=== PATIENT | male | born 1950 | race Caucasian/White ===

== ENCOUNTER 2020-07-27 08:47 | Observation (INO) | payer MEDICARE, BC ==
[~2020-07-27] VITALS: Ht 188 cm; Wt 108.9 kg
[2020-07-27] MEDS ORDERED: LIPITOR10 MG GT (10:09)
[2020-07-27] MEDS ORDERED: GLUCOPHAGE500 MG PO (10:09)
[2020-07-27] MEDS ORDERED: ASPIRIN81 MG PO (10:10)
[2020-07-27] MEDS ORDERED: ATORVASTATIN CA80 MG PO ×2 (14:23)
[2020-07-27] MEDS ORDERED: METFORMIN HCL500 M1 PO ×2 (14:26)
[2020-07-27] MEDS ORDERED: LO-DOSE ASPIRIN81 MG PO ×2 (14:26)
[2020-07-28] MEDS ORDERED: CLOPIDOGREL75 MG PO ×2 (08:57)
[2020-07-28] MEDS ORDERED: GLIPIZIDE5 MG PO ×2 (08:59)
--- NOTE | 2020-07-28 18:33 | EKG ---
[facility] [address] [facility] [place] [address] Signed Sinus rhythm with 1st degree AV block Otherwise normal ECG No previous ECGs available Confirmed by JENNIFER KNAPP DO ([id number]) on 07/28/2020 6:33:15 PM Electronically Signed By: JENNIFER KNAPP DO 07/28/20 1833 PATIENT NAME: GUANAKO STONE Electrocardiogram DATE OF : 52 PHYSICIAN: JENNIFER KNAPP DO REPORT #: [id number] REPORT IS CONFIDENTIAL AND NOT TO BE RELEASED WITHOUT AUTHORIZATION
[2020-07-29] MEDS ORDERED: REGLAN10 MG PO (14:02)
== END 2020-07-28 10:35 | disposition home or self-care (01) ==
LOC: ED 08:47 → MS 08:49 → ED 11:27 → MS 07-28 10:35
PROVIDERS: ADMIT Student in an Organized Health Care Education/Training Program; ATTEND Student in an Organized Health Care Education/Training Program
DX: G45.9 Transient cerebral ischemic attack, unspecified (principal); E11.9 Type 2 diabetes mellitus without complications; Z79.82 Long term (current) use of aspirin; Z79.84 Long term (current) use of oral hypoglycemic drugs
CPT/HCPCS: 70450; 70496; 70498; 71045; 80053; 80061; 83036; 84484; 85025; 85610; 85730; 93005; 93010; 97161; 97165; 99285-25; G0378; J1815; Q9967; U0003

== ENCOUNTER 2020-07-29 08:34 | Emergency (ER) | payer BC ==
[~2020-07-29] VITALS: Ht 188 cm; Wt 108.9 kg
[~2020-07-29 08:34] MED LIST: ASPIRIN81 MG PO; ATORVASTATIN CA80 MG PO; CLOPIDOGREL75 MG PO; GLIPIZIDE5 MG PO; GLUCOPHAGE500 MG PO; LIPITOR10 MG GT; LO-DOSE ASPIRIN81 MG PO; METFORMIN HCL500 M1 PO
--- OUTSIDE RECORDS SUMMARY | 2020-07-29 08:36 | XMS ---
PreManage Notification: GUANAKO STONE [employer] Events No recent Security Events currently on file CRITERIA MET - [facility] [place] - 2 Visits in 30 Days CARE PROVIDERS There are no care providers on record at this time. [facility] has no Care Guidelines for this patient. [facility] MO[facility] NOTE: Visits indicate total known visits. ED/C VISIT TRACKING (12 MO.) 07/29/2020 08:35 [facility] Emergency COMPLAINT: - NAUSEA, POSSIBLE DEHYDRATION 07/27/2020 08:48 [facility] [place] TYPE: Emergency COMPLAINT: - LEFT SIDED WEAKNESS, DIZZINESS INPATIENT VISIT TRACKING (12 MO.) 07/27/2020 08:49 [facility] [place] TYPE: Observation COMPLAINT: - TIA [email or web address]
[2020-07-29] MEDS ORDERED: REGLAN10 MG PO (14:02)
== END 2020-07-29 14:54 | disposition home or self-care (01) ==
LOC: ED 08:34
DX: G43.909 Migraine, unspecified, not intractable, without status migrainosus (principal); Z79.899 Other long term (current) drug therapy; Z79.84 Long term (current) use of oral hypoglycemic drugs; Z79.82 Long term (current) use of aspirin
CPT/HCPCS: 70551; 80053; 85025; 96374; 96375; 99284-25; J1200; J2060; J2765; J7030